=== PATIENT | female | born 1955 | race Caucasian/White ===

== ENCOUNTER 2016-10-20 15:20 | Emergency (ER) | payer OTHER ==
--- NOTE | 2016-10-20 15:50 | EDM.PDOC ---
ED HPI GENERAL MEDICAL PROBLEM - General Chief Complaint: General Stated Complaint: PNEUMONIA LIKE SYMPTOMS Time Seen by Provider: 10/20/16 15:48 Source of Information: Reports: Patient History Limitations: Reports: No limitations - History of Present Illness INITIAL COMMENTS - FREE TEXT/NARRATIVE: History of present illness: [61-year-old female presents with 85 day history of progressively worsening cough. Patient indicates that the cough is productive with deep Parsons yellow sputum but in scant amounts. Patient indicates that it hurts to breathe deeply and she feels short of breath at times. Patient denies smoking indicates that she did smoke but quit 5 years ago and at that juncture it was in the range of 5 -6 cigarettes 8 day. Patient also denies history of diabetes] Review of systems: As per history of present illness and below otherwise all systems reviewed and negative. Past medical history: As per history of present illness and as reviewed below otherwise noncontributory. Surgical history: As per history of present illness and as reviewed below otherwise noncontributory. Social history: No reported history of drug or alcohol abuse. Family history: As per history of present illness and as reviewed below otherwise noncontributory. Physical exam: HEENT: Atraumatic, normocephalic, pupils reactive, negative for conjunctival pallor or scleral icterus, mucous membranes moist, throat clear, neck supple, nontender, trachea midline. Lungs: Clear to auscultation, breath sounds equal bilaterally, chest nontender. Heart: S1S2, regular, negative for clicks, rubs, or JVD. Abdomen: Soft, nondistended, nontender. Negative for masses or hepatosplenomegaly. Negative for costovertebral tenderness. Pelvis: Stable nontender. Genitourinary: Deferred. Rectal: Deferred. Extremities: Atraumatic, negative for cords or calf pain. Neurovascular unremarkable. Neuro: Awake, alert, oriented. Cranial nerves II through XII unremarkable. Cerebellum unremarkable. Motor and sensory unremarkable throughout. Exam nonfocal. Diagnostics: [CBC, CMP, chest x-ray, influenza A B.] Therapeutics: [IV fluids, Toradol] Impression: [Bacterial pharyngitis, Bronchitis] Plan: [Inhaler, Tessalon Perles, Z-Ramón, Medrol Dosepak] Definitive disposition and diagnosis as appropriate pending reevaluation and review of above. Generalized Pain Score (Numeric/FACES): 9 - Related Data Allergies Allergy/AdvReac Type Severity Reaction Status Date / Time Lobster Allergy Vomiting Uncoded 10/20/16 15:36 Home Meds: Home Meds DULoxetine HCl [Cymbalta] 1 tab PO DAILY 03/29/14 [History] Estrogens, Conjugated [Premarin] 1 tab PO DAILY 03/29/14 [History] Albuterol [IJD: Albuterol HFA] 2 puff .XX Q6HR #8 gm 10/20/16 [Rx] Azithromycin [IJD: Azithromycin] 250 mg PO DAILY #6 tab 10/20/16 [Rx] Benzonatate [Tessalon Perles] 200 mg PO TID #30 cap 10/20/16 [Rx] Inhaler, Assist Devices [Space Chamber Plus] 1 each MC ASDIRECTED #1 spacer [Rx] methylPREDNISolone [Medrol] 4 mg PO ASDIRECTED #21 dospk 10/20/16 [Rx] Past Medical History - Past Health History Medical/Surgical History: Denies Medical/Surgical History Musculoskeletal History: Reports: Osteoarthritis - Infectious Disease History Infectious Disease History: Reports: Chicken pox, Measles, Mumps Social & Family History - Family History Family Medical History: Noncontributory - Tobacco Use Smoking Status *Q: Never Smoker - Caffeine Use Caffeine Use: Reports: None - Alcohol Use Days Per Week of Alcohol Use: 0 Number of Drinks Per Day: 0 Total Drinks Per Week: 0 - Recreational Drug Use Recreational Drug Use: No Drug Use in Last 12 Months: No ED ROS GENERAL - Review of Systems Review Of Systems: See Below (See history of present illness) ED EXAM, GENERAL - Physical Exam Exam: See Below (See history of present illness) Course - Vital Signs Last Recorded V/S: Last Vital Signs Temp 36.5 C 10/20/16 15:34 Pulse 102 H 10/20/16 15:34 Resp 18 10/20/16 15:34 BP 131/72 10/20/16 15:34 Pulse Ox 95 10/20/16 15:34 - Orders/Labs/Meds Orders: Active Orders 24 hr Category Date Time Status Sodium Chloride 0.9% [Normal Saline] 1,000 ml Med 10/20/16 15:56 Active IV STAT Medication Orders Sodium Chloride (Normal Saline) 1,000 mls @ 999 mls/hr IV STAT ONE Stop: 10/20/16 16:56 Labs: Laboratory Tests 10/20/16 10/20/16 Range/Units 16:00 16:00 WBC 3.92 L (4.0-11.0) K/uL RBC 5.03 (4.30-5.90) M/uL Hgb 14.6 (12.0-16.0) g/dL Hct 45.7 (36.0-46.0) % MCV 90.9 (80.0-98.0) fL MCH 29.0 (27.0-32.0) pg MCHC 31.9 (31.0-37.0) g/dL RDW Std Deviation 48.0 (28.0-62.0) fl RDW Coeff of Sarina 14 (11.0-15.0) % Plt Count 151 (150-400) K/uL MPV 10.40 (7.40-12.00) fL Neut % (Auto) 52.5 (48.0-80.0) % Lymph % (Auto) 38.5 (16.0-40.0) % Gilmer % (Auto) 8.7 (0.0-15.0) % Eos % (Auto) 0.0 (0.0-7.0) % Baso % (Auto) 0.3 (0.0-1.5) % Neut # (Auto) 2.1 (1.4-5.7) K/uL Lymph # (Auto) 1.5 (0.6-2.4) K/uL Gilmer # (Auto) 0.3 (0.0-0.8) K/uL Eos # (Auto) 0.0 (0.0-0.7) K/uL Baso # (Auto) 0.0 (0.0-0.1) K/uL Nucleated RBC % 0.0 /100WBC Nucleated RBCs # 0 K/uL Sodium 137 (136-146) mmol/L Potassium 3.8 (3.5-5.1) mmol/L Chloride 101 (98-110) mmol/L Carbon Dioxide 24 (21-31) mmol/L BUN 14 (6.0-23.0) mg/dL Creatinine 0.9 (0.6-1.5) mg/dL Est Cr Clr Drug Dosing 57.40 mL/min Estimated GFR (MDRD) > 60.0 ml/min Glucose 108 (60-110) mg/dL Calcium 9.0 (8.8-10.8) mg/dL Total Bilirubin 0.2 (0.1-1.5) mg/dL AST 25 (5-40) IU/L ALT 18 (8-54) IU/L Alkaline Phosphatase 51 (40-150) Total Protein 8.3 H (6.0-8.0) g/dL Albumin 4.3 (3.4-4.8) g/dL Globulin 4.0 H (2.0-3.5) g/dL Albumin/Globulin Ratio 1.1 L (1.3-2.8) Meds: Medications Generic Name Dose Route Start Last Admin Trade Name Freq PRN Reason Stop Dose Admin Sodium Chloride 1,000 mls @ 999 mls/hr 10/20/16 15:56 Normal Saline IV 10/20/16 16:56 STAT ONE Discontinued Medications Generic Name Dose Route Start Last Admin Trade Name Freq PRN Reason Stop Dose Admin Ketorolac Tromethamine 30 mg 10/20/16 15:56 Toradol IVPUSH 10/20/16 15:57 ONETIME ONE Departure - Departure Time of Disposition: 16:44 Disposition: Home, Self-Care 01 Condition: good Clinical Impression: Bronchitis, Acute bacterial pharyngitis Prescriptions: Albuterol [IJD: Albuterol HFA] 2 puff .XX Q6HR #8 gm Azithromycin [IJD: Azithromycin] 250 mg PO DAILY #6 tab Benzonatate [Tessalon Perles] 200 mg PO TID #30 cap Inhaler, Assist Devices [Space Chamber Plus] 1 each MC ASDIRECTED #1 spacer methylPREDNISolone [Medrol] 4 mg PO ASDIRECTED #21 dospk Instructions: Upper Respiratory Infection, Adult, Rhyb-uf-[id number], Acute Bronchitis, [id number] Additional Instructions: The following information is given to patients seen in the emergency department who are being discharged to home. This information is to outline your options for follow-up care. We provide all patients seen in our emergency department with a follow-up referral. The need for follow-up, as well as the timing and circumstances, are variable depending upon the specifics of your emergency department visit. If you don't have a primary care physician on staff, we will provide you with a referral. We always advise you to contact your personal physician following an emergency department visit to inform them of the circumstance of the visit and for follow-up with them and/or the need for any referrals to a consulting specialist. The emergency department will also refer you to a specialist when appropriate. This referral assures that you have the opportunity for follow-up care with a specialist. All of these measure are taken in an effort to provide you with optimal care, which includes your follow-up. Under all circumstances we always encourage you to contact your private physician who remains a resource for coordinating your care. When calling for follow-up care, please make the office aware that this follow-up is from your recent emergency room visit. If for any reason you are refused follow-up, please contact the [facility] Emergency Department at and asked to speak to the emergency department charge nurse. Take medication as directed Followup with primary care 1-2 days Return to ED as needed as discussed - My Orders Last 24 Hours: My Active Orders 10/20/16 15:56 Sodium Chloride 0.9% [Normal Saline] 1,000 ml IV STAT - Assessment/Plan Last 24 Hours: My Active Orders 10/20/16 15:56 Sodium Chloride 0.9% [Normal Saline] 1,000 ml IV STAT
[2016-10-20] MEDS ORDERED: Sodium Chloride 0.9% 1,000 ML IV ONE (15:56)
[2016-10-20] MEDS ORDERED: Ketorolac 30 MG/ML SDV IVPUSH ONE (15:56)
--- NOTE | 2016-10-20 16:19 | CR ---
EXAMINATION: Two-view chest (PA and Lateral views). HISTORY: Shortness of breath. FINDINGS: The trachea is midline. The cardiomediastinal silhouette is within normal limits. No pulmonary infil trates, effusions or pneumothorax. Osseous structures appear unremarkable. IMPRESSION: No acute cardiopulmonary process.
[2016-10-20 16:28] LABS: CHLORIDE,CL 101 mmol/L (98-110); SODIUM,NA 137 mmol/L (136-146)
[2016-10-20] MEDS ORDERED: Ketorolac 60 MG/2 ML SDV IM ONE (16:51)
[2016-10-20 20:02] VITALS: BP 119/57
== END 2016-10-20 17:30 | disposition home or self-care (01) ==
LOC: MW.ED 15:20
DX: J40 Bronchitis, not specified as acute or chronic (principal); J02.8 Acute pharyngitis due to other specified organisms; B96.89 Other specified bacterial agents as the cause of diseases classified elsewhere; M19.90 Unspecified osteoarthritis, unspecified site; Z79.899 Other long term (current) drug therapy
CPT/HCPCS: 36415; 71020; 80053; 85025; 87804; 99284; J1885; 96372

== ENCOUNTER → 2016-10-22 | Outpatient (CLI) | payer OTHER ==
[2016-10-22 10:50] LABS: CHLORIDE,CL 104 mmol/L (98-110); SODIUM,NA 140 mmol/L (136-146)
== END ==
LOC: MW.CHFP 09:50
PROVIDERS: ATTEND Emergency Medicine
DX: Z01.818 Encounter for other preprocedural examination (principal)
CPT/HCPCS: 36415; 80053; 82652; 85027; 93005

== ENCOUNTER → 2016-12-08 | Outpatient (CLI) | payer OTHER ==
--- NOTE | 2016-12-08 13:41 | CR ---
EXAMINATION: Cervical spine HISTORY: Pain COMPARISON: MRI dated 09/14/2016 TECHNIQUE: Single lateral view FINDINGS: The cervical spinal alignment appears grossly normal. The vertebral body heights appear ma intained. Anterior cervical fusion hardware is noted from C3 to C7. Early to body osseous fusion is noted. No acute osseous abnormality. The prevertebral soft tissues are normal. IMPRESSION: Postsurgical changes without acute findings.
== END ==
LOC: MW.DI 09:00
PROVIDERS: ATTEND Neurological Surgery
DX: M54.2 Cervicalgia (principal); Z98.890 Other specified postprocedural states
CPT/HCPCS: 72020; 72020-26

== ENCOUNTER 2018-11-27 09:39 | Day surgery (SDC) | payer OTHER ==
[~2018-11-27 09:39] MED LIST: Lactated Ringers 1,000 ML IV SCH; Lidocaine 2% 5 ML SDV ONE; Propofol 200 MG/20 ML SDV ONE; Sodium Chloride 0.9% 10 ML SDV IV PRN; Sodium Chloride 0.9% 10 ML Syringe FLUSH PRN; Sodium Chloride 0.9% 2.5 ML Syringe FLUSH PRN
--- NOTE | 2018-11-27 10:21 | PCM.PREANE ---
Preanesthetic Assessment - Anesthesia/Transfusion/Family Hx Anesthesia History: Prior Anesthesia Reaction Other Type of Anesthesia Reaction Comment: severe headache after recent bunionectomy Family History of Anesthesia Reaction: No Transfusion History: No Prior Transfusion(s) Intubation History: Unknown - Review of Systems General: No Symptoms Pulmonary: No Symptoms Cardiovascular: No Symptoms Gastrointestinal: Abdominal Pain, Difficulty Swallowing, Hematochezia, Other (h/ o colon polyps) Neurological: No Symptoms Other: Reports: None - Physical Assessment O2 Sat by Pulse Oximetry: 100 Respiratory Rate: 16 Vital Signs: Last Vital Signs Temp 36.4 C 11/27/18 10:02 Pulse 69 11/27/18 10:02 Resp 16 11/27/18 10:02 BP 112/58 L 11/27/18 10:02 Pulse Ox 100 11/27/18 10:02 Height: 1.63 m Weight: 59.421 kg ASA Class: 2 Mental Status: Alert & Oriented x3 Airway Class: Mallampati = 2 Dentition: Reports: Normal Dentition Thyro-Mental Finger Breadths: 3 Mouth Opening Finger Breadths: 3 ROM/Head Extension: Limited/Partial Lungs: Clear to Auscultation, Normal Respiratory Effort Cardiovascular: Regular Rate, Regular Rhythm - Allergies Allergies/Adverse Reactions: Allergies Allergy/AdvReac Type Severity Reaction Status Date / Time Lobster Allergy Vomiting Uncoded 06/28/18 12:50 - Blood Blood Available: No - Anesthesia Plan Pre-Op Medication Ordered: None - Acknowledgements Anesthesia Type Planned: MAC Pt an Appropriate Candidate for the Planned Anesthesia: Yes Alternatives and Risks of Anesthesia Discussed w Pt/Guardian: Yes Pt/Guardian Understands and Agrees with Anesthesia Plan: Yes PreAnesthesia Questionnaire - Past Health History Medical/Surgical History: Denies Medical/Surgical History HEENT History: Reports: Allergic Rhinitis, Hard of Hearing, Other (See Below) Other HEENT History: wears glasses, has bilateral hearing aides Gastrointestinal History: Reports: Colon Polyp, GERD, Other (See Below) (h/o gastric ulcer) RHEOLOGIST History: Reports: Musculoskeletal History: Reports: Back Pain, Chronic, Fracture, Neck Pain, Chronic, Osteoarthritis Other Musculoskeletal History: hx of spinal stenosis, sponylolisthesis, hx of left fx humerus Neurological History: Reports: Headaches, Chronic, Other (See Below) Other Neuro History: degenerative disc disease Psychiatric History: Reports: Depression - Infectious Disease History Infectious Disease History: Reports: Chicken Pox, Measles, Mumps - Past Surgical History Head Surgeries/Procedures: Reports: None HEENT Surgical History: Reports: Other (See Below) Other HEENT Surgeries/Procedures: throat surgery having vertebraes fused together GI Surgical History: Reports: Colonoscopy (2000), EGD (2000) Female Surgical History: Reports: D&C, Hysterectomy, Tubal Ligation Neurological Surgical History: Reports: C-Spine, Spinal Fusion Musculoskeletal Surgical History: Reports: Other (See Below) Other Musculoskeletal Surgeries/Procedures:: bilateral bunionectomies (has screws) - SUBSTANCE USE Smoking Status *Q: Former Smoker Tobacco Use Within Last Twelve Months: No Recreational Drug Use History: No - HOME MEDS Home Medications: Home Meds Estrogens, Conjugated [Premarin] 1 tab PO DAILY 03/29/14 [History] Brimonidine [Alphagan P 0.15% Ophth Soln] 1 drop EYEBOTH BEDTIME 11/22/18 [ History] DULoxetine HCl [Cymbalta] 60 mg PO DAILY PRN 11/22/18 [History] Diclofenac Epolamine [Flector] 1 patch TOP BID PRN 11/22/18 [History] Diclofenac Sodium [Voltaren 1% Gel] 4 gm TOP QID PRN 11/22/18 [History] Hydrocodone/Acetaminophen [Hydrocodon-Acetaminophn 10-325] 1 tab PO Q8H PRN 08/12 [History] - CURRENT (IN HOUSE) MEDS Current Meds: Current Medications Lactated Ringer's (Ringers, Lactated) 1,000 mls @ 125 mls/hr IV ASDIRECTED MATY Last Admin: 11/27/18 10:15 Dose: 125 mls/hr Sodium Chloride (Saline Flush) 10 ml FLUSH ASDIRECTED PRN PRN Reason: Keep Vein Open Sodium Chloride (Saline Flush) 2.5 ml FLUSH ASDIRECTED PRN PRN Reason: Keep Vein Open Sodium Chloride (Saline Flush) 10 ml FLUSH ASDIRECTED PRN PRN Reason: Keep Vein Open Sodium Chloride (Saline Flush) 2.5 ml FLUSH ASDIRECTED PRN PRN Reason: Keep Vein Open Sodium Chloride (Normal Saline) 10 ml IV ASDIRECTED PRN PRN Reason: IV Use Discontinued Medications Lidocaine (Xylocaine-Mpf 2%) Confirm Administered Dose 5 ml .ROUTE .STK-MED ONE Stop: 11/27/18 08:30 Propofol (Diprivan 20 Ml) Confirm Administered Dose 400 mg .ROUTE .STK-MED ONE Stop: 11/27/18 08:31
--- NOTE | 2018-11-27 12:14 | PCM.OPNOTE ---
- General Post-Op/Procedure Note Date of Surgery/Procedure: 11/27/18 Operative Procedure(s): Diagnostic EGD and colonoscopy Findings: Normal EGD and colonoscopy Pre Op Diagnosis: Heartburn, history of colon polyps Post-Op Diagnosis: Normal EGD and colonoscopy Anesthesia Technique: ELIEZER Primary Surgeon: Mar Duque Condition: Good
[2018-11-27 12:43] VITALS: BP 115/65
--- NOTE | 2018-11-27 12:49 | PCM.POSTAN ---
POST ANESTHESIA ASSESSMENT - MENTAL STATUS Mental Status: Alert, Oriented - RESPIRATORY Respiratory Status: Respiratory Rate WNL, Airway Patent, O2 Saturation Stable - CARDIOVASCULAR CV Status: Pulse Rate WNL, Blood Pressure Stable - GASTROINTESTINAL GI Status: No Symptoms - PAIN Pain Score: 0 - POST OP HYDRATION Hydration Status: Adequate & Stable - OBSERVATIONS Free Text/Narrative:: No anesthesia problems, patient skipped recovery room phase of postoperative care.
--- NOTE | 2018-11-27 15:21 | OR ---
SURGEON: RICKEY DALE MD DATE OF PROCEDURE: 11/27/2018 PREOPERATIVE DIAGNOSIS: Heartburn, history of colon polyps. POSTOPERATIVE DIAGNOSIS: Heartburn, history of colon polyps. PROCEDURE PERFORMED: Diagnostic EGD and colonoscopy. ANESTHESIA: MAC. INSTRUMENT USED: Olympus endoscope, Olympus colonoscope. EXTENT OF EXAM: To the cecum. PREPARATION: Good. LIMITATIONS: None. INDICATION FOR EXAMINATION: The patient is a 63-year-old female who presents with ongoing symptoms of heartburn. She also has a history of colon polyps and is in need of a repeat colonoscopy. I explained the procedure, the expected perioperative course, and risks including bleeding, infection, or damage to surrounding structures including perforation. The patient verbalized understanding and wishes to proceed. PROCEDURE IN DETAIL: The patient is brought to the endoscopy suite and placed in the left lateral decubitus position. A time-out was completed verifying the patient's name, age, date of , allergies, and procedure to be performed. A bite block was placed in the patient's mouth and monitored anesthesia care was induced. Continuous oxygen was provided via nasal cannula throughout the procedure. After adequate sedation was achieved, a well-lubricated endoscope was placed in the patient's mouth and advanced under direct visualization to the second portion of duodenum. This appeared normal and a photograph was taken. The scope was then straightened out and fully withdrawn while examining the color, texture, anatomy, and integrity of the mucosa of the upper GI tract. The duodenum appeared normal. The scope was brought into the stomach and a photograph was taken of the pylorus and GE junction. Both appeared normal. There was no evidence of any gross inflammation or ulceration within the gastric lining. Biopsies were taken of the gastric antrum, body, and fundus and sent for histologic review and H. pylori testing. The scope was brought into the distal esophagus and a photograph taken of the normal-appearing Z-line. The distal esophageal mucosa showed no evidence of severe inflammation. The remainder of the esophageal mucosa appeared free of pathology. The scope was removed and this portion of procedure was terminated. A digital rectal exam was performed. This exam was within normal limits. A well lubricated colonoscope was inserted into the rectum and advanced under direct visualization to the level of the cecum. The cecum was identified by both visual and anatomic landmarks. A photograph was taken of the cecal cap as well as with the scope retroflexed within the cecum. The scope was then straightened out and fully withdrawn while examining the color, texture, anatomy, and integrity of the mucosa from the cecum to the anal canal. The patient had normal-appearing colonic mucosa. The scope was brought into the rectum and retroflexed to allow visualization of the anal canal opening. This appeared normal and a photograph was taken. Scope was then straightened out and fully withdrawn. The cecum to anus time was 7 minutes. The patient tolerated the procedure well and was transferred to the PACU in stable condition. ENDOSCOPIC DIAGNOSIS: Heartburn, history of colon polyps. RECOMMENDATIONS: Follow up in clinic in 2 weeks to discuss the next steps in treatment and our diagnosis and treatment. ELLIE GARCIA /[id number]
== END 2018-11-27 13:28 | disposition home or self-care (01) ==
LOC: MW.SDS 09:39
PROVIDERS: ATTEND Surgery
DX: K62.5 Hemorrhage of anus and rectum (principal); R10.30 Lower abdominal pain, unspecified; K29.50 Unspecified chronic gastritis without bleeding; F32.9 Major depressive disorder, single episode, unspecified; M19.90 Unspecified osteoarthritis, unspecified site; Z91.013 Allergy to seafood; Z86.010 Personal history of colon polyps; Z87.891 Personal history of nicotine dependence; Z79.899 Other long term (current) drug therapy
CPT/HCPCS: 43239; 45378; J2001; J2704; J7120; 88305; 88312

== ENCOUNTER 2025-01-31 08:41 | Day surgery (SDC) | payer MEDICARE, OTHER ==
[~2025-01-31 08:41] MED LIST changes: -Lactated Ringers 1,000 ML IV SCH; -Lidocaine 2% 5 ML SDV ONE; -Propofol 200 MG/20 ML SDV ONE; -Sodium Chloride 0.9% 10 ML SDV IV PRN
[2025-01-31] MEDS: Lactated Ringers 1,000 ML IV SCH (09:15)
[2025-01-31] MEDS ORDERED: propofoL 500 MG/50 ML 50 ML ONE (11:07)
[2025-01-31 13:00] VITALS: BP 105/63; PULSE 55
== END 2025-01-31 13:00 | disposition home or self-care (01) ==
LOC: MW.SDS 08:41
PROVIDERS: ATTEND Surgery
DX: Z12.11 Encounter for screening for malignant neoplasm of colon (principal); K29.50 Unspecified chronic gastritis without bleeding; B96.81 Helicobacter pylori [H. pylori] as the cause of diseases classified elsewhere; K63.5 Polyp of colon; K31.A0 Gastric intestinal metaplasia, unspecified; K21.9 Gastro-esophageal reflux disease without esophagitis; K57.30 Diverticulosis of large intestine without perforation or abscess without bleeding; Z86.0101 Personal history of adenomatous and serrated colon polyps; Z87.891 Personal history of nicotine dependence; Z79.899 Other long term (current) drug therapy
CPT/HCPCS: 43239; 45380; J2003; J2704; J7120; 00813; 88305